=== PATIENT | female | born 1965 | race Caucasian/White ===

== ENCOUNTER 2020-03-28 11:53 | Outpatient (CLI) | payer OTHER, SELFPAY ==
--- NOTE | 2020-03-28 12:42 | ECG_ITS ---
Measurements Intervals [place] Rate: 91 P: 52 AK: 145 QRS: 56 QRSD: 72 T: 57 QT: 354 QTc: 436 Interpretive Statements SINUS RHYTHM VOLTAGE CRITERIA FOR LVH BASELINE ARTIFACT- I, II, III, AVR, AVL, AVF BORDERLINE ECG Electronically Signed On 03-28-2020 13:21:01 CDT by Con Bass D.O.
[2020-03-28 13:01] LABS: Basophils Absolute Auto 0.1 K/mm3 (0.0-0.1); Basophils Percent Auto 1.2 % (0.2-1.2); Eosinophils Absolute Auto 0.1 K/mm3 (0-0.3); Eosinophils Percent Auto 2.3 % (0-4.4); Hemoglobin 15.1 g/dL (12.0-15.0); Immature Granulocyte Absolute 0.01 K/mm3 (0.00-0.031); Immature Granulocyte Percent A 0.2 % (0-0.5); Lymphocytes Absolute Auto 2.28 K/mm3 (0.9-3.2); Lymphocytes Percent Auto 39.8 % (18.3-44.2); Mean Corpuscular HGB Conc 32.8 g/dl (32-36); Mean Corpuscular Hemoglobin 27.9 pg (26-34); Mean Corpuscular Volume 84.9 fl (80-100); Mean Platelet Volume 9.8 fl (7.4-10.4); Monocytes Absolute Auto 0.4 K/mm3 (0.1-0.6); Monocytes Percent Auto 6.5 % (2.6-8.5); Neutrophils Absolute Auto 2.9 K/mm3 (1.3-6.7); Platelet Count Result 312 k/mm3 (150-375); Red Blood Count 5.42 M/mm3 (4.2-5.4); Red Cell Distribution Width 13.2 % (11.5-14.5); White Blood Count 5.7 K/mm3 (4.5-10.0)
== END 2020-03-28 11:54 | disposition home or self-care (01) ==
PROVIDERS: Visit Provider Orthopaedic Surgery
DX: Z01.818 Encounter for other preprocedural examination (principal); M17.10 Unilateral primary osteoarthritis, unspecified knee
CPT/HCPCS: 36415; 85025; 93005

== ENCOUNTER 2020-04-13 01:18 | Outpatient (CLI) | payer OTHER, SELFPAY ==
[2020-04-13 16:42] LABS: SARS-CoV-2 RNA PCR Negative
== END 2020-04-13 01:19 | disposition home or self-care (01) ==
LOC: ANHCOVIDDT 01:18
PROVIDERS: Visit Provider Orthopaedic Surgery
DX: Z01.812 Encounter for preprocedural laboratory examination (principal); Z20.828 Contact with and (suspected) exposure to other viral communicable diseases
CPT/HCPCS: 87635; C9803; U0003

== ENCOUNTER 2020-04-16 00:11 | Day surgery (SDC) | payer OTHER, SELFPAY ==
[2020-03-28 12:41] VITALS: BP 155/83; PULSE 98; RESP 16; TEMP 36.6; O2SAT 97; BMI 30.6
[2020-04-16] VITALS (7 sets, daily range): BP systolic 128–163; BP diastolic 64–86; PULSE 83–95; RESP 11–20; TEMP 36.5–36.6; O2SAT 94–100
--- NOTE | ~2020-04-16 | XR_ITS ---
EXAMINATION: XR knee RT 2V DATE: 04/16/2020 15:02 INDICATION: Right knee arthroplasty. Postop. TECHNIQUE: 3 views of right knee were obtained. COMPARISON: Right knee radiograph 04/01/2020 FINDINGS: There is a patellofemoral compartment arthroplasty in near-anatomic alignment. No fracture. There are tiny osteophytes of the medial and lateral compartments. There is a 6 mm loose body in the knee joint posteriorly. There is gas in the soft tissues, consistent with recent surgery. IMPRESSION: 1. New patellofemoral compartment arthroplasty in near-anatomic alignment. 2. Mild osteoarthritis of medial and lateral compartments. 3. Loose body in the knee joint. Reviewed, dictated and finalized at location A.
--- NOTE | 2020-04-16 07:24 | WPDHPUPDATE1 ---
History and Physical Update Update Date/Time: 04/16/20 07:24 History and Physical has been reviewed, including an updated exam of the patient. There are NO changes in the patient's condition. Risks, benefits, and alternatives have been discussed and questions answered. Patient agrees to proceed with procedure.
[2020-04-16] MEDS: LACTATED RINGERS 1,000 ML 30 ML IV CONT ×2 (11:50→14:45)
[2020-04-16] MEDS: TRANEXAMIC ACID 1,000MG/ISO100 1,000 MG/100 ML BAG 200 MG IVPB (11:55)
--- NOTE | 2020-04-16 12:18 | SUR.PREOP ---
1200-NO HAIR NOTED FOR REMOVAL-PT DID OWN HAIR REMOVAL PRIOR TO ARRIVAL.
--- NOTE | 2020-04-16 12:26 | WPDANESEPPF ---
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 Patient Data Age: 54 Gender: F Height: 1.57 m Weight: 77.4 kg Last Vital Signs Temp 36.6 C 04/16/20 11:39 Pulse 86 04/16/20 11:39 Resp 20 04/16/20 11:39 BP 141/81 H 04/16/20 11:39 Pulse Ox 100 04/16/20 11:39 Allergies Allergy/AdvReac Type Severity Reaction Status Date / Time No Known Allergies Allergy Verified 04/16/20 12:06 Home Medications Medication Instructions Recorded Confirmed Type naproxen sodium [Aleve] 440 mg PO BID 03/28/20 04/16/20 History Patient hx anesthesia problems: none Family hx anesthesia problems: none [facility] Past Medical History Medical History (Updated 04/15/20 @ 09:42 by Otis Stephenson DO) History of breast cancer History of MRSA infection Liver dysfunction Patellofemoral arthritis RLS (restless legs syndrome) Surgical History Surgical History History of (~06/11/92) History of lumpectomy (~12/2015) Social History Social History (Updated 04/16/20 @ 12:26 by Otis Stephenson DO) Smoking status: Never smoker Alcohol intake: current Alcohol use details: 2-3 drinks/day Gender identity (if verbalized by the patient): Female Anes - Eval Final PreProcedure Day of Procedure 04/16/20 12:26 Patient weight: obese Heart: regular rate and rhythm Lungs: clear to auscultation and normal air movement Airway: Mallampati scale class II Neurological: alert and oriented Last oral intake: >/= 8 hours ASA classification: III Emergent: no Anesthetic plan: proceed Anesthesia type and monitoring: general LMA and standard monitoring Informed Consent: The patient's anesthetic plan and its attendant risks and benefits were discussed with the patient/family/POA. Questions were solicited and answers provided to the satisfaction of the patient/family/POA.
--- NOTE | 2020-04-16 12:27 | WPDANESPNB ---
Anes - Peripheral Nerve Block Date/Time: 04/16/20 12:27 I have discussed with the patient/family/POA the placement of a peripheral nerve block for post-operative pain management, including associated risks, benefits, complications, and side effects. Alternative methods of post-operative analgesia were detailed. Questions were solicited and answers provided to the satisfaction of the patient/family/POA. Time-Out: A pre-procedural Time-Out was completed immediately before starting the procedure and confirmed: Patient Identification, Site, Procedure, Patient Position and the Availability of Requisite Equipment. Clinical Indications: Acute post-operative pain management requested by the operative surgeon. Nerve Block Insertion Note Anes-nerve block: adductor canal right Patient position: supine Skin prep: chlorhexidine Needle: 22 gauge, stimulating, insulated echogenic needle. Needle length: 80 mm Technique: ultrasound Injectate: bupivacaine 0.5% with epi 5 mcg/ml (30cc) Observations: tolerated well Complications: none Procedure start time:: 1220 Procedure end time:: 1224
[2020-04-16] MEDS: ceFAZolin 2 GM/D5W 50 ML 2 GM/50 ML BAG IVPB (12:29)
--- NOTE | 2020-04-16 15:08 | PM.PROC ---
Procedure Note - Detailed Date of procedure: 04/16/20 Pre-op diagnosis: Right Patello Femoral Arthritis Post-op diagnosis: same Procedure performed: Patellofemoral arthroplasty Implants: [employer] patellofemoral joint system patellofemoral trochlea component size 4 [employer] complete knee solution all poly patella size 32, 8.5 mm thickness Anesthesia: GLMA and regional (Interscalene block) Surgeon: Jorge Luis Castellano MD Estimated blood loss (mL): 20 Tourniquet time (min): 65 Drains: No Pathology: none sent Complications: No immediate complications Condition: stable Disposition: PACU Findings: Preoperative antibiotics were given. The patient was brought to the operating room. An interscalene block was 1st placed in the holding area. The leg was prepped and draped in usual sterile fashion with a well-padded tourniquet high on the thigh. The limb was exsanguinated and the tourniquet inflated to 300 mmHg. A longitudinal incision was created at the medial aspect of the patella and patellar tendon. Care was taken to avoid the intrameniscal ligaments. The fat pad was partially incised. A mid vastus approach to the knee was performed. Examination showed some hyperextensibility to the knee natively. Patellar tracking was found to be increased compared to normal. Complete erosion of the lateral trochlea and most of the patella was confirmed. The AP axis was marked. The trans epicondylar axis and a line perpendicular to the AP axis was also marked. The femoral canal was drilled and the alignment aliya placed into the femoral canal 10 mm anterior to the PCL insertion. The alignment jig was aligned with the previously mentioned landmarks. Three pins were placed. The height of the resection was 1st confirmed using the stylus. The cut was taken with the oscillating saw through the jig. The anterior flange was flat on the anterior femur. The sizing guides were used and the patient was exactly line to line with a size 4. The size 3 appeared quite small. It was elected to use the size 4. The high-speed bur was used according to the technique guide. The trial was placed. Fit and fill was excellent. Minimal increased depth on the lateral condyle was addressed with very slight trimming of the articular cartilage at the conclusion of the procedure in an isolated area laterally. Patellar tracking was excellent. The patella was cut for resurfacing. It started off quite thin. Therefore minimal resection was taken down to 12-1/2 mm at the thinnest point. Essentially no further bone was taken laterally. The 32 mm button fit very nicely line to line. Tracking was again confirmed and found to be excellent without significant tilt. The lateral restraints did not need release. The trials were removed. The knee was copiously irrigated with antibiotic irrigation. The bony surfaces were prepared for cementation. The real components were cemented into position. Excess cement was carefully removed. The deep fascia was closed with interrupted 1. Vicryl suture. Running suture was placed. 0 Quill suture was used 1st, followed by 2 0 Quill suture. The skin was closed with Steri-Strips and an impervious adhesive bandage was placed. A sterile dressing with an Dvaid bandage was applied. Patient was extubated and brought to recovery room in stable condition.
== END 2020-04-16 16:15 | disposition home or self-care (01) ==
PROVIDERS: Visit Provider Orthopaedic Surgery
PROC: (CPT 27446; principal; 2020-04-16 13:30)
DX: M17.11 Unilateral primary osteoarthritis, right knee (principal); G89.18 Other acute postprocedural pain; G25.81 Restless legs syndrome; Z85.3 Personal history of malignant neoplasm of breast; E66.9 Obesity, unspecified; Z68.31 Body mass index [BMI] 31.0-31.9, adult
CPT/HCPCS: 27442; 64447; 73560; C1713; J0171; J0690; J1100; J1170; J1885; J2250; J2270; J2405; J2704; J2795; J3010; J7120

== ENCOUNTER 2020-05-21 09:00 | Outpatient (RCR) | payer OTHER, SELFPAY ==
--- NOTE | 2020-04-08 15:09 | PTOPEVAL ---
PHYSICAL THERAPY EVALUATION AND PLAN OF CARE Thank you for referring Helen Tafoya to [facility]. Helen participate in a physical therapy evaluation for education prior to PKA on 04/16/2020. She was provided with pre and post op exercises. We will see her again 1 week s/p R PKA. Please review, sign, date and return this plan of care GILDA. I agree with and certify that the following plan of care is medically necessary. Referring Physician Date Attending Provider: Jorge Luis Castellano MD Evaluation Outpatient Past Medical History Neurological History Hx Other Neurological Disorders Yes: RLS Cardiovascular History Hx Other Cardiac Disorders Yes: DENIES CARDIAC SYMPTOMS Respiratory History Hx Respiratory Disorders No Significant History Gastrointestinal History Hx Other Gastrointestinal Disorders Yes: HX EGD Genitourinary History Hx Urinary Tract Infection Yes: PAST HX Musculoskeletal History Hx Arthritis Yes: KNEES Hematological History Hx Hematological Disorders No Significant History Endocrine History Hx Endocrine Disorders No Significant History HEENT History Hx Dental Problems Yes: UPPER DENTURE Integumentary History Hx Skin Disorders No Significant History Reproductive History Hx Section Yes: X1 Hx Other Reproductive Disorders Yes: LT LUMPECTOMY 2015 Psychosocial History Hx Psychiatric Disorders No Significant History Pain History Has Past Pain Affected Your Daily Life Yes: RT KNEE Anesthesia History Hx Anesthesia Reactions No Significant History Other History Hx Cancer Yes: LT BREAST Hx Chemotherapy Yes Hx MRSA Yes: 2011 Hx Radiation Therapy Yes Evaluation Information Problem Diagnosis right partial knee replacement Cause OA Subjective Information Helen is here 1 week prior to Query Text:As Reported By Patient/ her partial knee arthroplasty Family scheduled for 04/16/2020. She reports pain with diminished success of cortisone injections. Reports that her back is starting to hurt from limping and walking funny. no longer take pain medication or using pain patches. Self Report Pain Assessment Right Knee(s) Reported Pain Level 8 Pain Description Aching Pain Frequency Chronic,Continuous Other Pain Description 5 Lowest Pain Intensity 10 Knee Range of Motion Right Knee Flexion Range of Motion - Active 130 Knee Extension Range of Motion - Active 0 Query Text: Hip Strength Right Hip Flexion Strength 5 Normal Knee Strength
--- NOTE | 2020-04-23 14:27 | PTOPEVAL ---
PHYSICAL THERAPY RE-EVALUATION FOLLOWING SURGICAL INTERVENTION Thank you for referring Helen Tafoya to [facility]. I recommend Helen participate in physical therapy 1-2x/week for 3-4 weeks. Please review, sign, date and return this plan of care GILDA. I agree with and certify that the following plan of care is medically necessary. Referring Physician Date Attending Provider: Jorge Luis Castellano MD Re-evaluation Diagnosis right partial knee replacement Cause OA Subjective Information Helen is here s/p 1 week Query Text:As Reported By Patient/ partial knee arthroplasty - Family she received a cap on the patella. She is using her ice machine and taking an aspirin . Worst pain is at night. She prefers to be up and moving and prefers to walk without walker. I recommended that if she has a limp she should use a device such as a walker or a cane, but if she is not experiencing pain she has a choice. Self Report Pain Assessment Right Knee(s) Reported Pain Level 5 Pain Description Aching Pain Frequency Acute,Intermittent Other Pain Description 3 Lowest Pain Intensity 8 Pain Behaviors None Knee Range of Motion Right Reason Not Measured Surgery Precautions Knee Flexion Range of Motion - Active 74 Knee Flexion Range of Motion - Passive 82 Knee Extension Range of Motion - Active 0 Query Text: Lower Extremity Muscle Strength Testing Hip Strength Right Hip Flexion Strength 5 Normal Knee Strength Right Knee Flexion Strength 4- Good - Knee Extension Strength 3- Fair - Knee Strength Comments fair quad set; unable to perform 3 SAQ Muscle Length Testing Muscle Length Testing Left Hamstring Length -20 Query Text:(90 - 90 Position) Right Hamstring Length -20 Query Text:(90 - 90 Position) Palpation mild warmth to touch around incision site; mild pink to red color noted - instructed patient to watch for increased redness or heat to touch and to alert physician if those changes occur. Gait Pattern Antalgic Gait Other Gait Observations without WW, she has mild antalgia off right LE with
--- NOTE | 2020-05-09 09:00 | PCPTNOTE ---
Patient called & cancelled scheduled appointment this date due to food poisoning.
--- NOTE | 2020-05-21 09:35 | PTOPEVAL ---
PHYSICAL THERAPY DISCHARGE NOTE Thank you for referring Helen Tafoya to [facility]. Please review, sign, date and return this plan of care GILDA. I agree with and certify that the following plan of care is medically necessary. Referring Physician Date Attending Provider: Jorge Luis Castellano MD Discharge Diagnosis right partial knee replacement Onset 04/16/2020 Cause OA Subjective Information Helen has nothing to report. Query Text:As Reported By Patient/ Her knee has little to no pain. Family She states that she went shopping the other day and the entire right side of the leg was sore, but the knee itself was ok. Self Report Pain Assessment Right Knee(s) Reported Pain Level 1 Pain Description Aching Pain Frequency Acute,Intermittent Pain Behaviors None Knee Range of Motion Right Reason Not Measured Surgery Precautions Knee Flexion Range of Motion - Active 124 Knee Extension Range of Motion - Active 0 Query Text: Lower Extremity Muscle Strength Testing Hip Strength Right Hip Flexion Strength 5 Normal Hip Abduction Strength 4 Good Knee Strength Right Knee Flexion Strength 5 Normal Knee Extension Strength 4 Good Gait Assessment Gait Assessment Ambulation Assistive Devices Crutches Weight Bearing Status - Left Full Weight Bearing Status - Right Full Stair Climbing Assessment Stair Climbing Assistive Devices Railings Weight Bearing Status - Left Full Weight Bearing Status - Right As Tolerated Maintains Weight Bearing Status Yes Number of Steps Climbed (Steps) 4 Number of Repetitions (Repetitions) 1 Technique Alternating Steps Stair Climbing Direction Both Up and Down Stair Climbing Ability Independent PT Clinical Summary Helen is a 54 yo female participating in physical therapy 1 month s/p right PKA. She has met her functional goals at this time with WNL ROM and WFL strength. She is understanding of HEP and will continue HEP for at least 3- 4weeks. I recommend discharge at this time. PT Services Indicated Yes Rehabilitation Potential Excellent Patient/Caregiver's Personal Goals for decrease pain Rehabilitation Potential Barriers to Goal Achievements None Support Requirements For Opti
== END 2020-05-22 08:31 | disposition home or self-care (01) ==
LOC: ANHPT 09:00
PROVIDERS: PCP Orthopaedic Surgery; Visit Provider Orthopaedic Surgery
DX: M17.10 Unilateral primary osteoarthritis, unspecified knee (principal)
CPT/HCPCS: 97110; 97140; 97161

== ENCOUNTER 2020-08-06 11:00 | Emergency (ER) | payer OTHER, SELFPAY ==
[2020-08-06 11:28] VITALS: BP 153/82; PULSE 106; RESP 16; TEMP 36.3; O2SAT 100
[2020-08-06 11:43] LABS: Add Urine Microscopic? NO; Appearance Urine Clear (Clear); Bilirubin Urine Negative (Negative); Blood Urine Negative (Negative); Color Urine Colorless (Yellow); Glucose Urine UA Negative (Negative); Ketones Urine Negative (Negative); Leukocyte Esterase Ur Negative LEU/UL (Negative); Nitrate Urine Negative (Negative); Protein Urine Negative (Negative); Urobilinogen Urine Negative mg/dL (<2.0)
[2020-08-06 11:46] LABS: Specific Grav Ur 1.003 (1.001-1.035)
[2020-08-06 11:55] LABS: Amphetamine Screen Urine Positive (Negative); Barbiturate Screen Urine Negative (Negative); Benzodiazepines Screen Urine Negative (Negative); Cannabinoid Screen Urine Negative (Negative); Cocaine Screen Urine Negative (Negative); Methadone Screen Urine Negative (Negative); Opiate Screen Urine Positive (Negative); Phencyclidine Screen Urine Negative (Negative)
--- NOTE | 2020-08-06 12:10 | ED.GENADULT ---
HPI - General Adult General Chief complaint: Wound/Laceration <Adolfo Schmidt PA-C - Last Filed: 08/06/20 12:13> Stated complaint: WOUND <Adolfo Schmidt PA-C - Last Filed: 08/06/20 12:13> Time Seen by Provider: 08/06/20 11:01 <Adolfo Schmidt PA-C - Last Filed: 08/06/20 12:13> Source: patient <Adolfo Schmidt PA-C - Last Filed: 08/06/20 12:13> Mode of arrival: ambulatory <Adolfo Schmidt PA-C - Last Filed: 08/06/20 12:13> Limitations: no limitations <Adolfo Schmidt PA-C - Last Filed: 08/06/20 12:13> History of Present Illness HPI narrative: Patient is a 55-year-old female who presents to emergency department for evaluation of wounds to the face and on the torso patient is unsure as to the etiology notes that she had a similar occurrence in the past that may have been related to a urinary tract infection. Patient on arrival is in no distress. Patient's wounds are consistent with skin picking on first examination. Patient denies other complaints and is otherwise in no distress upon arrival <Adolfo Schmidt PA-C - Last Filed: 08/06/20 12:13> Related Data Home medications: Home Medications Medication Instructions Recorded Confirmed naproxen sodium [Aleve] 440 mg PO BID 03/28/20 04/16/20 <Adolfo Schmidt PA-C - Last Filed: 08/06/20 12:13> Allergies/adverse reactions: Allergies Allergy/AdvReac Type Severity Reaction Status Date / Time No Known Allergies Allergy Verified 04/16/20 12:06 <Adolfo Schmidt PA-C - Last Filed: 08/06/20 12:13> Review of Systems Review of Systems: All systems reviewed & are unremarkable except as noted in HPI and below <Adolfo Schmidt PA-C - Last Filed: 08/06/20 12:13> PMF Past Medical History Medical History: Medical History History of breast cancer History of MRSA infection Liver dysfunction Patellofemoral arthritis RLS (restless legs syndrome) <Adolfo Schmidt PA-C - Last Filed: 08/06/20 12:13> Surgical History Surgical History: Surgical History History of (~06/11/92) History of lumpectomy (~12/2015) <Adolfo Schmidt PA-C - Last Filed: 08/06/20 12:13> Social History Social History: Social History Smoking status: Never smoker Alcohol intake: current Gender identity (if verbalized by the patient): Female Sexual Orientation (if Verbalized by the Patient): Straight or Heterosexual <KENNETH Lugo Last Filed: 08/06/20 12:13> Exam Narrative: Exam Narrative: GENERAL: Well-appearing, well-nourished, and in no acute distress. HEAD: Normocephalic, atraumatic. EYES: PERRLA and EOMI. ENT: Nares clear, no rhinorrhea or epistaxis. Mucous membranes moist. CHEST: Clear to auscultation. No respiratory distress. No wheezes rales or rhonchi HEART: Regular rate and rhythm. No murmur heard. Normal peripheral pulses. ABDOMEN: Soft, nontender, nondistended EXTREMITIES: Normal range of motion. No edema. SKIN: Warm, dry, no rash. Multiple scabbed lesions of the extremities one raw wound to the right cheek which is concerning for skin picking measures 2 cm in diameter and is superficial no erythema NEURO: No focal deficits. Alert and oriented x3. PSYCH: Normal mood and affect. 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
== END 2020-08-06 12:43 | disposition home or self-care (01) ==
PROVIDERS: Emergency Medicine Emergency Medical Services; Emergency Provider Emergency Medicine
DX: L98.9 Disorder of the skin and subcutaneous tissue, unspecified (principal); Z85.3 Personal history of malignant neoplasm of breast
CPT/HCPCS: 80307; 81003; 99283

== ENCOUNTER 2020-10-04 11:26 | Outpatient (CLI) | payer OTHER, SELFPAY ==
[2020-10-04 11:46] LABS: Basophils Absolute Auto 0.1 K/mm3 (0.0-0.1); Basophils Percent Auto 0.9 % (0.2-1.2); Eosinophils Absolute Auto 0.1 K/mm3 (0-0.3); Eosinophils Percent Auto 1.4 % (0-4.4); Hematocrit 46.3 % (37.0-47.0); Immature Granulocyte Absolute 0.01 K/mm3 (0.00-0.031); Immature Granulocyte Percent A 0.2 % (0-0.5); Lymphocytes Absolute Auto 1.96 K/mm3 (0.9-3.2); Lymphocytes Percent Auto 29.6 % (18.3-44.2); Mean Corpuscular HGB Conc 32.4 g/dl (32-36); Mean Corpuscular Hemoglobin 27.4 pg (26-34); Mean Corpuscular Volume 84.6 fl (80-100); Mean Platelet Volume 9.7 fl (7.4-10.4); Monocytes Absolute Auto 0.5 K/mm3 (0.1-0.6); Monocytes Percent Auto 7.1 % (2.6-8.5); Neutrophils Percent Auto 60.8 % (45.5-73.1); Platelet Count Result 329 k/mm3 (150-375); Red Blood Count 5.47 M/mm3 (4.2-5.4); Red Cell Distribution Width 13.3 % (11.5-14.5); White Blood Count 6.6 K/mm3 (4.5-10.0)
[2020-10-04 13:09] LABS: Alanine Aminotransferase 52 U/L (4-35); Albumin Level 4.4 g/dL (3.5-5.1); Alkaline Phosphatase 121 U/L (38-126); Anion Gap 9 mmol/L (8-16); Aspartate Amino Transferase 39 U/L (14-36); Bilirubin,Total 0.5 mg/dL (0.2-1.3); Blood Urea Nitrogen 10 mg/dL (7-17); Carbon Dioxide 28 mmol/L (22-30); Chloride 101 mmol/L (98-107); Estimated Glomerular Filt Rate > 60; Glucose 87 mg/dL (65-105); Potassium 3.7 mmol/L (3.4-5.0); Sodium 138 mmol/L (137-145)
[2020-10-09 14:13] LABS: CA 15-3 19 U/mL (<32)
== END 2020-10-04 11:27 | disposition home or self-care (01) ==
LOC: ANHLAB 11:28
PROVIDERS: Visit Provider Internal Medicine Hematology & Oncology
DX: C50.412 Malignant neoplasm of upper-outer quadrant of left female breast (principal); Z17.1 Estrogen receptor negative status [ER-]
CPT/HCPCS: 36415; 80053; 85025; 86300

== ENCOUNTER 2020-10-29 17:23 | Outpatient (CLI) | payer OTHER, SELFPAY ==
--- NOTE | ~2020-10-29 | MM_ITS ---
EXAMINATION: MM screening [facility] BI w ronan HISTORY: Screening TECHNIQUE: Craniocaudal and mediolateral oblique 3-D tomosynthesis images were obtained and synthetic 2-D images were generated. CAD analysis was submitted and interpreted. COMPARISON: Comparison to multiple prior studies sequentially, with oldest reviewed study dated 12/2014. BREAST PARENCHYMAL COMPOSITION: There are scattered areas of fibroglandular density. FINDINGS: There is architectural distortion in the left breast from previous lumpectomy for malignanc y. There is no evidence of suspicious mass, calcification, or architectural distortion to suggest mal ignancy in either breast. There has been no suspicious interval change. IMPRESSION: 1. No mammographic evidence of malignancy. 2. Recommend routine screening mammography in one year. BI-RADS Category 2: Benign finding(s). Reviewed, dictated and finalized at location A. [facility]
== END 2020-10-29 17:24 | disposition home or self-care (01) ==
LOC: ANHIMG 17:24
PROVIDERS: Visit Provider Internal Medicine Hematology & Oncology
DX: Z12.31 Encounter for screening mammogram for malignant neoplasm of breast (principal)
CPT/HCPCS: 77063; 77067

== ENCOUNTER 2022-11-20 17:38 | Emergency (ER) | payer OTHER, SELFPAY ==
[2022-11-20] VITALS (8 sets, daily range): BP systolic 125–139; BP diastolic 65–80; PULSE 96–102; RESP 21–23; TEMP 36.5; O2SAT 100
[2022-11-20 17:58] LABS: Basophils Percent Auto 0.4 % (0.2-1.2); Eosinophils Percent Auto 0.6 % (0-4.4); Hematocrit 33.6 % (37.0-47.0); Hemoglobin 11.1 g/dL (12.0-15.0); Immature Granulocyte Absolute 0.04 K/mm3 (0.00-0.031); Immature Granulocyte Percent A 0.6 % (0-0.5); Lymphocytes Absolute Auto 1.64 K/mm3 (0.9-3.2); Lymphocytes Percent Auto 22.7 % (18.3-44.2); Mean Corpuscular Hemoglobin 33.1 pg (26-34); Mean Corpuscular Volume 100.3 fl (80-100); Mean Platelet Volume 8.7 fl (7.4-10.4); Monocytes Absolute Auto 0.7 K/mm3 (0.1-0.6); Neutrophils Absolute Auto 4.8 K/mm3 (1.3-6.7); Neutrophils Percent Auto 66.7 % (45.5-73.1); Platelet Count Result 313 k/mm3 (150-375); Red Blood Count 3.35 M/mm3 (4.2-5.4); Red Cell Distribution Width 15.9 % (11.5-14.5); White Blood Count 7.2 K/mm3 (4.5-10.0)
[2022-11-20 18:08] LABS: Alanine Aminotransferase 25 U/L (6-35); Albumin Level 3.6 g/dL (3.5-5.1); Alkaline Phosphatase 127 U/L (38-126); Anion Gap 7 mmol/L (8-16); Aspartate Amino Transferase 26 U/L (14-36); Bilirubin,Total 0.1 mg/dL (0.2-1.3); Blood Urea Nitrogen 6 mg/dL (7-17); Calcium 8.5 mg/dL (8.4-10.2); Carbon Dioxide 25 mmol/L (22-30); Chloride 104 mmol/L (98-107); Estimated CRCL calculation 52 ml/min; Estimated Glomerular Filt Rate 57; Glucose 87 mg/dL (65-110); Potassium 3.8 mmol/L (3.4-5.0); Sodium 136 mmol/L (137-145)
[2022-11-20 18:14] LABS: Prothrombin Time 12.5 Seconds (11.1-14.7)
[2022-11-20 18:15] LABS: Partial Thromboplastin Time 32.6 SECONDS (22.3-36.8)
--- NOTE | 2022-11-20 20:16 | ED.GENADULT ---
HPI - General Adult General Chief complaint: GI Bleed Stated complaint: RECTAL BLEEDING X2D Time Seen by Provider: 11/20/22 19:48 History of Present Illness HPI narrative: Patient 57-year-old female who presents the emergency department with chief complaint of rectal bleeding. Patient reports that she has had several episodes of bright red blood per rectum but reports she has had several bowel movements since then that are no longer bloody. Patient reports that she is having no pain reports that she does have history of anemia and has had a blood transfusion at [facility] after her treatment for breast cancer. Patient reports that her most recent hemoglobin was 8.1. Patient reports she is having no chest pain or shortness of breath and reports that she has had a bowel movement that did not have blood in it afterwards. Related Data Home Medications Medication Instructions Recorded Confirmed naproxen sodium 220 mg tablet 440 mg PO BID 03/28/20 10/07/20 (Aleve) Allergies Allergy/AdvReac Type Severity Reaction Status Date / Time No Known Allergies Allergy Verified 11/20/22 19:22 Review of Systems Review of Systems: A 10 system review of systems was completed on the patient and is negative except for what is stated in the HPI. Nursing and ancillary documentation was reviewed. [facility] Past Medical History Medical History (Updated 11/20/22 @ 21:41 by Bryson Moncada MD) History of breast cancer History of MRSA infection Liver dysfunction Patellofemoral arthritis RLS (restless legs syndrome) Surgical History Surgical History History of (~06/11/92) History of lumpectomy (~12/2015) Social History Social History Smoking status: Never smoker Alcohol intake: current Alcohol use details: 2-3 drinks/day Gender identity (if verbalized by the patient): Female Sexual Orientation (if Verbalized by the Patient): Straight or Heterosexual Exam Narrative: GENERAL: Well-appearing, well-nourished, and in no acute distress. HEAD: Normocephalic, atraumatic. EYES: PERRLA and EOMI. ENT: Nares clear, no rhinorrhea or epistaxis. Mucous membranes moist. NECK: Supple. CHEST: Clear to auscultation. No respiratory distress. HEART: Regular rate and rhythm. No murmur heard. Normal peripheral pulses. ABDOMEN: Soft, nontender, nondistended, normal active bowel sounds. : There is a small hemorrhoid present that is visible externally and also palpable internally no bright red blood on rectal exam stool was trace guaiac positive EXTREMITIES: Normal range of motion. No edema. SKIN: Warm, dry, no rash. NEURO: No focal deficits. Alert and oriented x3. PSYCH: Normal mood and affect. Course Vital Signs Vital signs: Vital Signs Temperature 36.5 C 11/20/22 17:40 Pulse Rate 96 11/20/22 17:40 Blood Pressure 139/65 11/20/22 17:40 Pulse Oximetry 100 11/20/22 17:40 Temperature 36.5 C 11/20/22 17:40 Pulse Rate 101 H 11/20/22 19:46 Respiratory Rate 23 H 11/20/22 19:46 Blood Pressure 125/76 11/20/22 19:46 Pulse Oximetry 100 11/20/22 19:46 Medical Decision Making MDM Narrative Medical decision making narrative: Differential diagnosis includes thrombocytopenia, GI bleed, hemorrhoidal bleed. Patient is currently asymptomatic and is reported that the bright red blood has actually stopped. The patient does have a visible external hemorrhoid present on exam The patient's family pulled up her MyChart from [facility] from earlier this month she had a hemoglobin of 8.1. Patient's exam is nontoxic abdomen exam is benign at this time helical imaging is not warranted of the abdomen pelvis. Given the patient is currently not having active bleeding and has a identifiable probable source of the bleeding a repeat H&H was ordered to make sure the patient is
[2022-11-20 21:06] LABS: Hematocrit 31.9 % (37.0-47.0); Hemoglobin 10.5 g/dL (12.0-15.0)
== END 2022-11-20 21:53 | disposition home or self-care (01) ==
PROVIDERS: Emergency Medicine; Emergency Provider Emergency Medicine; PCP Emergency Medicine
DX: K64.4 Residual hemorrhoidal skin tags (principal); G25.81 Restless legs syndrome; M17.9 Osteoarthritis of knee, unspecified; Z85.3 Personal history of malignant neoplasm of breast; Z86.14 Personal history of Methicillin resistant Staphylococcus aureus infection
CPT/HCPCS: 36415; 80053; 85014; 85018; 85025; 85610; 85730; 86850; 86900; 86901; 99283